=== PATIENT | male | born 1980 | race Caucasian/White ===

== ENCOUNTER 2017-05-08 13:04 | Inpatient (IN) | payer SELFPAY ==
[2017-05-08] MEDS ORDERED: IOHEXOL 350 MG/ML 10 ML VIAL (for RAD DIAG) IVCONTRAST ONE (13:05)
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
[2017-05-08 13:28] LABS: I-STAT POTASSIUM 4.1 MMOL/L (3.5-4.9); I-STAT SODIUM 139 MMOL/L (138-146)
[2017-05-08 13:29] LABS: AUTOMATED NEUTROPHIL # 4.1 TH/MM3 (1.8-7.7); BASOPHIL # 0.1 TH/MM3 (0-0.2); BASOPHIL % 0.8 % (0.0-2.0); EOSINOPHIL # 0.1 TH/MM3 (0-0.4); EOSINOPHIL % 1.5 % (0.0-4.0); HEMATOCRIT 43.5 % (39.0-51.0); HEMO FLAGS DIFF FINAL; LYMPH % 29.2 % (9.0-44.0); LYMPHOCYTE # 1.9 TH/MM3 (1.0-4.8); MEAN CELL VOLUME 84.9 FL (80.0-100.0); MEAN CORPUSCULAR HEMOGLOBIN 29.1 PG (27.0-34.0); MEAN CORPUSCULAR HGB CONC 34.3 % (32.0-36.0); MONO % 6.2 % (0.0-8.0); NEUT % 62.3 % (16.0-70.0); PLATELET COUNT 228 TH/MM3 (150-450); RED BLOOD COUNT 5.12 MIL/MM3 (4.50-5.90); RED CELL DISTRIBUTION WIDTH 12.9 % (11.6-17.2); WHITE BLOOD COUNT 6.5 TH/MM3 (4.0-11.0)
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
[2017-05-08 13:43] LABS: ALCOHOL LESS THAN 3 MG/DL (0-5)
[2017-05-08 13:46] LABS: APTT (PATIENT) 20.3 SEC (24.3-30.1); INTERNATIONAL NORMALIZED RATIO 1.1 RATIO; PROTHROMBIN TIME - PATIENT 10.7 SEC (9.8-11.6)
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
[2017-05-08 14:29] VITALS: BP 147/75; PULSE 89; RESP 18; O2SAT 100; O2SAT 99
[2017-05-08] MEDS ORDERED: HUMALOG SQ (14:34)
[2017-05-08] MEDS ORDERED: INSU1INJ14 SQ (14:34)
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
[2017-05-08] MEDS ORDERED: GADODIAMIDE PF 287 MG/ML 5 ML VIAL (for RAD MRI) IVCONTRAST ONE (14:49)
[2017-05-08] MEDS ORDERED: MAGNESIUM HYDROXIDE SUSP 30 ML CUP PO PRN (15:00)
[2017-05-08] MEDS ORDERED: ENALAPRILAT 1.25 MG/ML VIAL IV PUSH PRN (15:00)
[2017-05-08] MEDS ORDERED: GLUCAGON 1 MG/ML VIAL OTHER PRN (15:00)
[2017-05-08] MEDS ORDERED: ONDANSETRON HCL 4 MG/2 ML VIAL IVP PRN (15:00)
[2017-05-08] MEDS ORDERED: BISACODYL 10 MG SUPP RECTAL PRN (15:00)
[2017-05-08] MEDS ORDERED: NALOXONE HCL 0.4 MG/ML AMP IV PUSH PRN (15:00)
[2017-05-08] MEDS ORDERED: SODIUM CHLORIDE 0.9% FLUSH 10 ML FLUSH IV FLUSH PRN (15:00)
[2017-05-08] MEDS ORDERED: LABETALOL HCL 100 MG/20 ML VIAL IV PUSH PRN (15:00)
[2017-05-08] MEDS ORDERED: ACETAMINOPHEN 325 MG TAB PO PRN (15:00)
[2017-05-08] MEDS ORDERED: SENNOSIDES 8.6 MG TAB PO PRN (15:00)
[2017-05-08] MEDS ORDERED: DEXTROSE 50% IN WATER 50 ML VIAL(D50) IV PUSH PRN (15:00)
[2017-05-08] MEDS ORDERED: LACTULOSE SYRUP 20 GM/30 ML CUP PO PRN (15:00)
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
[2017-05-08] MEDS: SODIUM CHLOR 0.9% 1000 ML INJ 1,000 ML IV SCH (16:16)
[2017-05-08 16:17] VITALS: BP 138/75; PULSE 76; RESP 18; TEMP 98.7; O2SAT 96
--- NOTE | 2017-05-08 17:47 | RADRPT ---
EXAM DATE/TIME: 05/08/2017 17:05 [facility] COMPARISON: CT BRAIN W/O CONTRAST, May 08, 2017, 13:11. INDICATIONS : Stroke. MEDICAL HISTORY : Diabetes mellitus type 1. SURGICAL HISTORY : Finger. ENCOUNTER: Subsequent ACUITY: 1 day PAIN SCORE: 3/10 LOCATION: cranial Please note a normal MRA of the brain does not entirely exclude the possibility of a small aneurysm, nor the possibility of distal intracranial vessel disease. TECHNIQUE: 3D time of flight MRA was performed. Source images, multiplanar STS MIP, and 3D volume MIP reconstru ctions were reviewed. FINDINGS: Anterior circulation: Distal intracranial internal carotid arteries are patent with flow extending to the middle and anteri or cerebral arteries. The M2 branches are generally small in caliber bilaterally. There is apparent o cclusion of proximal M2 branch on the left. There is no evidence for aneurysm or evidence for vascula r malformation. Posterior circulation: Symmetric distal vertebral arteries with flow extending to basilar artery. There is no evidence for aneurysm, vessel truncation or stenosis, and no evidence for vascular malformation. CONCLUSION: 1. Small caliber M2 branches with occlusion of a proximal left M2 branch. Differential considerations include vasospasm/vasculitis although the remaining cerebral vessels are normal in appearance. Nik Wagner MD on May 08, 2017 at 17:41 Board Certified Radiologist. This report was verified electronically.
[2017-05-08] MEDS: INSULIN ASPART SUPPLEMENTAL SCALE SQ SCH ×2 (18:17→22:08)
--- NOTE | 2017-05-08 18:52 | RADRPT ---
EXAM DATE/TIME: 05/08/2017 17:05 [facility] COMPARISON: CT BRAIN W/O CONTRAST, May 08, 2017, 13:11. INDICATIONS : Metastatic disease versus subacute stroke on the left side of cranial region. CONTRAST: 20 cc Omniscan (gadodiamide) IV MEDICAL HISTORY : Diabetes mellitus type 2. SURGICAL HISTORY : Sx on finger. ENCOUNTER: Initial ACUITY: 1 day PAIN SCORE: 10 LOCATION: Bilateral cranial TECHNIQUE: Multiplanar, multisequence MRI of the brain was performed both prior to and following the administrat ion of paramagnetic contrast. FINDINGS: The examination is abnormal demonstrating a uniformly enhancing mass which surrounds the left sphenoi d wing and clinoid process, measures 3.7 cm in superior/inferior extent, and 3.9 cm in greatest obliq ue axial dimension. The contrast enhancement is fairly uniform and no cystic areas are seen. The lo cation and extension along the dura of the middle cranial fossa and along the superior wing of the le ft sphenoid suggestive this is extra axial in origin. This does cause displacement of the frontal an d temporal cortex and there is associated significant cerebral edema in the left temporal lobe which causes 4 mm midline shift toward the right and mass effect at the uncus. The pituitary stalk remains in the midline and there is homogeneous enhancement of the pituitary gland. No additional enhancing areas in the supratentorial brain. The posterior fossa structures are grossly intact without eviden ce of mass or abnormal enhancement. No focal areas of restricted diffusion. The brainstem is intact . Visualized portion of the orbits and paranasal sinuses are intact. 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 Surya Lott MD on May 08, 2017 at 18:42 Board Certified Radiologist. This report was verified electronically.
[2017-05-08] MEDS ORDERED: levETIRAcetam INJ 1,000 MG in SODIUM CHLORIDE 0.9% INJ 100 ML IV ONE (19:15)
[2017-05-08] MEDS ORDERED: LORazepam 2 MG/ML VIAL IV PUSH PRN (19:15)
[2017-05-08] MEDS ORDERED: levETIRAcetam INJ 100 ML IV ONE (19:30)
[2017-05-08 20:00] VITALS: PULSE 78
[2017-05-08] MEDS: DOCUSATE SODIUM 50 MG/SENNA 8.6 MG TAB PO SCH (21:00)
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
[2017-05-08 21:33] VITALS: O2SAT 98
[2017-05-08] MEDS: ATORVASTATIN 10 MG TAB PO SCH (21:45)
[2017-05-08] MEDS: SODIUM CHLORIDE 0.9% FLUSH 10 ML FLUSH IV FLUSH SCH (21:45)
[2017-05-08] MEDS: levETIRAcetam 500 MG TAB PO SCH (22:00)
[2017-05-08 22:11] LABS: HEMOGLOBIN A1a 1.2 %; HEMOGLOBIN A1b 1.8 %; HEMOGLOBIN Ao 82.5 %; HEMOGLOBIN LA1C 3.2 %
--- NOTE | 2017-05-08 22:27 | MG ---
cc: BC FELICIANO MD Lab No: Date: 05/08/2017 Age: Sex: M Race: ELECTROENCEPHALOGRAM RECORD NUMBER [id number] HISTORY History of mental status changes. DESCRIPTION Posterior rhythm demonstrates 7-9 Hz activity, 20-50 microvolts. Frontal beta theta frequencies. Good EEG variability and reactivity. Occasional chewing artifact. Good EEG variability reactivity. Attenuation of background and slowing with transition into drowsy state. Good driving with photic stimulation. Single lead EKG showing sinus rhythm. INTERPRETATION Normal awake EEG. Clinical correlation. Bc Feliciano MD MG/KK /8:56 PM /10:15 PM
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
[2017-05-09] VITALS (10 sets, daily range): BP systolic 115–158; BP diastolic 58–98; PULSE 58–83; RESP 17–20; TEMP 97.7–98.2; O2SAT 96–99
[2017-05-09 03:59] LABS: AUTOMATED NEUTROPHIL # 4.3 TH/MM3 (1.8-7.7); BASOPHIL % 0.6 % (0.0-2.0); EOSINOPHIL # 0.1 TH/MM3 (0-0.4); EOSINOPHIL % 2.1 % (0.0-4.0); HEMATOCRIT 42.5 % (39.0-51.0); HEMO FLAGS DIFF FINAL; LYMPH % 21.5 % (9.0-44.0); LYMPHOCYTE # 1.4 TH/MM3 (1.0-4.8); MEAN CELL VOLUME 83.7 FL (80.0-100.0); MEAN CORPUSCULAR HEMOGLOBIN 28.6 PG (27.0-34.0); MEAN CORPUSCULAR HGB CONC 34.2 % (32.0-36.0); MONO % 7.7 % (0.0-8.0); NEUT % 68.1 % (16.0-70.0); PLATELET COUNT 216 TH/MM3 (150-450); RED BLOOD COUNT 5.07 MIL/MM3 (4.50-5.90); RED CELL DISTRIBUTION WIDTH 12.9 % (11.6-17.2); WHITE BLOOD COUNT 6.3 TH/MM3 (4.0-11.0)
[2017-05-09 04:21] LABS: ANION GAP 5 MEQ/L (5-15); AST (GOT) 25 U/L (15-37); BICARBONATE 29.5 MEQ/L (21.0-32.0); BLOOD UREA NITROGEN 15 MG/DL (7-18); CHLORIDE 105 MEQ/L (98-107); GLOMERULAR FILTRATION RATE 75 ML/MIN (>89); POTASSIUM 3.7 MEQ/L (3.5-5.1); SODIUM (NA) 139 MEQ/L (136-145)
[2017-05-09 04:25] LABS: ALKALINE PHOSPHATASE 67 U/L (45-117); ALT (GPT) 31 U/L (12-78); HDL CHOLESTEROL 70.6 MG/DL (40.0-60.0); LDL CHOLESTEROL 125 MG/DL (0-99); TOTAL BILIRUBIN ADULT 0.4 MG/DL (0.2-1.0)
[2017-05-09] MEDS: levETIRAcetam 500 MG TAB PO SCH ×3 (07:14→22:00)
[2017-05-09] MEDS: SODIUM CHLOR 0.9% 1000 ML INJ 1,000 ML IV SCH (08:00)
[2017-05-09] MEDS: DOCUSATE SODIUM 50 MG/SENNA 8.6 MG TAB PO SCH ×2 (08:24→21:00)
[2017-05-09] MEDS ORDERED: ASPIRIN 81 MG CHEW TAB PO SCH (09:00)
[2017-05-09] MEDS: SODIUM CHLORIDE 0.9% FLUSH 10 ML FLUSH IV FLUSH SCH ×2 (09:00→21:00)
--- NOTE | 2017-05-09 12:35 | EKG ---
Date Performed: 05/08/2017 Time Performed: 15:22:22 PTAGE: 89 years EKG: Sinus rhythm NORMAL ECG NO PREVIOUS TRACING DOCTOR: Roderick Yarbrough Interpretating Date/Time 05/09/2017 12:34:38
--- NOTE | 2017-05-09 12:57 | EKG ---
Date Performed: 05/08/2017 Time Performed: 22:31:59 PTAGE: 89 years EKG: Sinus rhythm NORMAL ECG PREVIOUS TRACING : 05/08/2017 15.22 Compared to prior tracing no significant change DOCTOR: Roderick Yarbrough Interpretating Date/Time 05/09/2017 12:56:52
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
[2017-05-09] MEDS: INSULIN ASPART 1,000 UNITS/10 ML VIAL SQ SCH ×2 (13:59→18:15)
[2017-05-09] MEDS: INSULIN ASPART SUPPLEMENTAL SCALE SQ SCH ×3 (13:59→21:00)
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
[2017-05-09] MEDS ORDERED: [UNRECOGNIZED DRUG - OTHER] SQ SCH (21:00)
[2017-05-09] MEDS ORDERED: TRESIBA 30 UNIT SQ SCH (21:00)
[2017-05-09] MEDS ORDERED: PATIENT OWN MEDICATION SQ SCH (21:00)
--- NOTE | 2017-05-09 21:46 | HHI.PR ---
Review/Management Diagnosis Left sphenoid wing meningioma Episode of LOC----this was preceded by speech difficulty then LOC--Most likely focal sz from the meningioma with secondary generalization Plan I agree with recommendation for surgery for tumor continue keppra 1000 mg tid I told the patient not to drive for at least 6 months. Diagnosis/Plan: Subjective Subjective Comments No acute events reported No episodes of speech arrest or LOC Active Medications Current Medications Medications (Trade) Dose Ordered Sig/Seda Route Start Time Stop Time Status Last Admin (NS Flush) 2 ml BID IV FLUSH 05/08/17 21:00 05/09/17 09:00 (NS Flush) 2 ml UNSCH PRN IV FLUSH 05/08/17 15:00 (Vasotec Inj) 1.25 mg Q4H PRN IV PUSH 05/08/17 15:00 (Trandate Inj) 10 mg Q2H PRN IV PUSH 05/08/17 15:00 (Aspirin Chew) 81 mg DAILY PO 05/09/17 09:00 Future Hold (Lipitor) 10 mg HS PO 05/08/17 21:00 05/08/17 21:45 (D50w (Vial) Inj) 50 ml UNSCH PRN IV PUSH 05/08/17 15:00 (Glucagon Inj) 1 mg UNSCH PRN OTHER 05/08/17 15:00 (Tylenol) 650 mg Q4H PRN PO 05/08/17 15:00 (Zofran Inj) 4 mg Q6H PRN IVP 05/08/17 15:00 (Narcan Inj) 0.4 mg UNSCH PRN IV PUSH 05/08/17 15:00 (Sylvia-Colace) 1 tab BID PO 05/08/17 21:00 (Milk Of Magnesia Liq) 30 ml Q12H PRN PO 05/08/17 15:00 (Senokot) 17.2 mg Q12H PRN PO 05/08/17 15:00 (Dulcolax Supp) 10 mg DAILY PRN RECTAL 05/08/17 15:00 (Lactulose Liq) 30 ml DAILY PRN PO 05/08/17 15:00 (Keppra) 1,000 mg Q8HR PO 05/08/17 22:00 05/09/17 13:59 (Ativan Inj) 1 mg Q4H PRN IV PUSH 05/08/17 19:15 (NovoLOG SUPPLEMENTAL SCALE) 1 ACHS SLIDING SCALE SQ 05/09/17 12:00 05/09/17 13:59 Patient Own Medication PT OWN MED: TRESIBA FLEXTO... HS SQ 05/09/17 21:00 Future Hold (NovoLOG INJ) 10 units TIDAC SQ 05/09/17 12:00 Future Hold 05/09/17 13:59 Allergies Allergies Coded Allergies dexamethasone (Verified Allergy, Severe, Hives, 05/08/17) Exam I&O / VS 05/09/17 05/09/17 05/10/17 15:00 23:00 07:00 # Voids 1 Vital Signs Date Time Temp Pulse Resp B/P (MAP) Pulse Ox O2 Delivery O2 Flow Rate FiO2 05/09/17 20:21 98.2 67 17 115/58 (77) 97 05/09/17 17:34 98.0 70 18 145/82 (103) 99 05/09/17 12: 97.7 72 18 158/97 (117) 98 05/09/17 12:05 83 05/09/17 08:02 79 05/09/17 07:50 98.0 78 18 148/98 (115) 98 05/09/17 04:10 98.0 58 20 140/76 (97) 97 05/09/17 04:00 60 05/09/17 00:26 98.0 80 18 150/93 (112) 96 05/09/17 00:00 60 Exam Comments alert, oriented,speech fluent, comprehension normal Cn intact MOTOR--no focal abnormalities Objective Micro and Labs Laboratory Tests Test 05/09/17 03:42 White Blood Count 6.3 Red Blood Count 5.07 Hemoglobin 14.5 Hematocrit 42.5 Mean Corpuscular Volume 83.7 Mean Corpuscular Hemoglobin 28.6 Mean Corpuscular Hemoglobin Concent 34.2 Red Cell Distribution Width 12.9 Platelet Count 216 Mean Platelet Volume 8.6 Neutrophils (%) (Auto) 68.1 Lymphocytes (%) (Auto) 21.5 Monocytes (%) (Auto) 7.7 Eosinophils (%) (Auto) 2.1 Basophils (%) (Auto) 0.6 Neutrophils # (Auto) 4.3 Lymphocytes # (Auto) 1.4 Monocytes # (Auto) 0.5 Eosinophils # (Auto) 0.1 Basophils # (Auto) 0.0 CBC Comment DIFF FINAL Differential Comment Blood Urea Nitrogen 15 Creatinine 0.88 Random Glucose 160 Total Protein 7.1 Albumin 3.8 Calcium Level 9.2 Alkaline Phosphatase 67 Aspartate Amino Transf (AST/SGOT) 25 Alanine Aminotransferase (ALT/SGPT) 31 Total Bilirubin 0.4 Sodium Level 139 Potassium Level 3.7 Chloride Level 105 Carbon Dioxide Level 29.5 Anion Gap 5 Estimat Glomerular Filtration Rate 75 Troponin I LESS THAN 0.02 Triglycerides Level 112 Cholesterol Level 218 LDL Cholesterol 125 HDL Cholesterol 70.6 Cholesterol/HDL Ratio 3.08 Diagnostic Tests EEG---normal Byron Griffin PhD May 09, 2017 21:46
[2017-05-10 00:13] VITALS: BP 120/65; PULSE 60; RESP 17; TEMP 97.9; O2SAT 97
[2017-05-10] MEDS: ATORVASTATIN 10 MG TAB PO SCH (00:50)
[2017-05-10 03:45] VITALS: BP 125/59; PULSE 63; RESP 16; TEMP 97.8; O2SAT 98
[2017-05-10] MEDS: levETIRAcetam 500 MG TAB PO SCH (05:13)
[2017-05-10] MEDS ORDERED: LEVE500 PO (08:07)
[2017-05-10 08:09] VITALS: BP 122/60; PULSE 63; RESP 18; TEMP 98.1; O2SAT 97
--- NOTE | 2017-05-10 08:11 | HHI.DCPOC ---
Discharge Care Plan Diagnosis: (1) Altered level of consciousness (2) Abnormal CT of brain Goals to Promote Your Health * To prevent worsening of your condition and complications * To maintain your health at the optimal level Directions to Meet Your Goals No driving, operating heavy machinery, swimming alone, going on heights or caring for young children unassisted. Please follow up closely with PCP, neurologist and neurosurgeon. Take your medications as prescribed Follow your dietary instruction Follow activity as directed Keep your appointments as scheduled Take your immunizations and boosters as scheduled If your symptoms worsen call your PCP, if no PCP go to Urgent Care Center or Emergency Room Smoking is Dangerous to Your Health. Avoid second hand smoke Call the 24-hour hour crisis hotline for domestic abuse at Lola Adames May 10, 2017 08:11
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
[2017-05-10] MEDS: INSULIN ASPART SUPPLEMENTAL SCALE SQ SCH (09:35)
[2017-05-10] MEDS: DOCUSATE SODIUM 50 MG/SENNA 8.6 MG TAB PO SCH (09:36)
[2017-05-10] MEDS: SODIUM CHLORIDE 0.9% FLUSH 10 ML FLUSH IV FLUSH SCH (09:36)
[2017-05-10 11:44] VITALS: BP 129/68; PULSE 70; RESP 18; TEMP 98; O2SAT 97
== END 2017-05-10 13:42 | disposition home or self-care (01) | DRG 55 ==
LOC: NEPI 13:04 → NEDA 14:48 → EDBD 14:48 → INTOOBSV 14:48 → NEPFCDU 16:20 → OBSVTOIN 05-09 08:33
PROVIDERS: ADMIT Family Medicine; ATTEND Family Medicine
DX: D32.9 Benign neoplasm of meninges, unspecified (principal); R56.9 Unspecified convulsions; R55 Syncope and collapse; E10.9 Type 1 diabetes mellitus without complications; V43.52XA Car driver injured in collision with other type car in traffic accident, initial encounter
CPT/HCPCS: 70450; 70544; 70553; 71010; 71260; 72125; 72129; 72132; 74177; 80053; 80061; 80307; 82435; 82565; 82947; 82948; 83036; 84132; 84295; 84443; 84484; 84520; 85025; 85610; 85730; 86850; 86900; 86901; 93005; 93880; 95819; 99291; A9579; G0390; J1815; J1953; J7030; Q9967